=== PATIENT | female | born 1965 | race Caucasian/White ===

== ENCOUNTER 2020-08-26 12:35 | Emergency (ER) | payer MEDICAID ==
[~2020-08-26] VITALS: Ht 157.5 cm; Wt 68.0 kg
[2020-08-26 12:37] VITALS: BP 130/74
--- NOTE | 2020-08-26 12:40 | NUR ---
PATIENT AMBULATED TO BED 12. HANDED ON URINE CUP.
--- NOTE | 2020-08-26 12:54 | NUR ---
54 Y/O F BIB FROM HOME, PATIENT PRESENTS TO ED WITH ABD PAIN, WENT TO URGENT CARE AND WAS TOLD TO COME HERE FOR SYMPTOMS. 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 DENIES N/V/D, VAGINAL DISCHARGE AND BLEEDING, PAINFUL URINATION; SKIN IS PINK/WARM/DRY; AAOX4 WITH EVEN AND STEADY GAIT; LUNGS CLEAR BL; HR EVEN AND REGULAR; PT DENIES ANY FEVER, CP, SOB, OR COUGH AT THIS TIME; PATIENT STATES PAIN OF 0/10 AT THIS TIME; VSS; PATIENT POSITIONED FOR COMFORT; HOB ELEVATED; BEDRAILS UP X2; BED DOWN. ER MD MADE AWARE OF PT STATUS. PT REQUESTED A WORK NOTE FOR LIMITED MOBILITY. PMH: VERTIGO ALLERGY: PT STATES SHE DOES NOT REMEMBER NAME OF MEDICATION MED: NONE
--- NOTE | 2020-08-26 13:05 | NUR ---
LAB AT BEDSIDE
[2020-08-26 13:29] LABS: BASOPHILS % (AUTO) 0.8 % (0.0-2.0); EOSINOPHILS # (AUTO) 0.3 K/uL (0-0.4); EOSINOPHILS % (AUTO) 5.4 % (0.0-4.0); HEMATOCRIT 39.1 % (36-48); HEMOGLOBIN 13.5 g/dL (12.0-16.0); LYMPHOCYTES # (AUTO) 2.1 K/uL (2.5-16.5); LYMPHOCYTES % (AUTO) 38.7 % (20.5-51.1); MEAN CORPUSCULAR HEMOGLOBIN 33 pg (27-31); MEAN CORPUSCULAR HGB CONC 34 g/dL (33-37); MEAN CORPUSCULAR VOLUME 94.3 fL (80-94); MONOCYTES # (AUTO) 0.4 K/uL (0.8-1.0); MONOCYTES % (AUTO) 6.9 % (1.7-9.3); NEUTROPHILS # (AUTO) 2.7 K/uL (1.8-7.7); NEUTROPHILS % (AUTO) 48.2 % (42.2-75.2); PLATELET COUNT (AUTO) 187 K/uL (140-450); RED BLOOD CELL COUNT(AUTO) 4.15 MIL/uL (4.20-5.40); RED CELL DISTRIBUTION WIDTH 13.2 % (11.6-13.7); WHITE BLOOD COUNT (AUTO) 5.5 K/uL (4.8-10.8)
[2020-08-26] MEDS ORDERED: ALUMINUM HYD/MAG/SIMETHICONE 30 ML UDC PO ONE (13:35)
[2020-08-26] MEDS ORDERED: FAMOTIDINE 20 MG TAB PO ONE (13:35)
[2020-08-26 13:50] LABS: ALBUMIN 4.4 g/dL (3.4-5.0); ANION GAP 9.9 (8-16); CARBON DIOXIDE 30.8 mmol/L (21-32); POTASSIUM 3.7 mmol/L (3.5-5.1); TOTAL BILIRUBIN 0.4 mg/dL (0.0-1.0)
[2020-08-26 14:56] VITALS: BP 130/74
--- NOTE | 2020-08-26 14:57 | NUR ---
Patient discharged with v/s stable. Written and verbal after care instructions given and explained. Patient verbalized understanding. Ambulatory with steady gait. All questions addressed prior to discharge. Advised to follow up with PMD.
== END 2020-08-26 14:57 | disposition home or self-care (01) ==
LOC: MED 12:35
DX: K80.20 Calculus of gallbladder without cholecystitis without obstruction (principal); Z98.890 Other specified postprocedural states
CPT/HCPCS: 36415; 76705; 80053; 81002; 83690; 85025; 99284

== ENCOUNTER 2020-09-10 12:57 | Emergency (ER) | payer MEDICAID ==
[~2020-09-10] VITALS: Ht 154.9 cm; Wt 68.0 kg
[2020-09-10 13:06] VITALS: BP 116/67
--- NOTE | 2020-09-10 13:25 | NUR ---
PT COMPLAINS OF NAUSEA, ABDOMINAL DISCOMFORT SINCE LAST VISIT ON July. PT STATES LAST VISIT SHE HAD BEEN DISCHARGED WITH GALLSTONES AND THAT PAIN HAS BEEN LINGERING SINCE WITH SOME HOT FLASHES. PT AOX4, BREATHING EVEN AND UNLABORED, SKIN WARM AND DRY. BED IN LOWEST POSITION, LOCKED, BED RAIL UPX1. PMH - DENIES ALLERGIES - NKA
[2020-09-10] MEDS: KETOROLAC 60 MG/2 ML VIAL IM ONE (13:44)
[2020-09-10] MEDS ORDERED: ONDA4TAB PO (14:08)
[2020-09-10] MEDS ORDERED: IBUP-1842 PO (14:08)
[2020-09-10 14:39] VITALS: BP 116/67
--- NOTE | 2020-09-10 14:40 | NUR ---
Patient discharged with v/s stable. Written and verbal after care instructions about biliary colic given and explained. Patient alert, oriented and verbalized understanding of instructions. Ambulatory with steady gait. All questions addressed prior to discharge. ID band removed. Patient advised to follow up with PMD. Rx of ibuprofen, zofran given. Patient educated on indication of medication including possible reaction and side effects. Opportunity to ask questions provided and answered.
== END 2020-09-10 14:40 | disposition home or self-care (01) ==
LOC: MED 12:57
DX: K80.80 Other cholelithiasis without obstruction (principal); R11.0 Nausea; Z79.899 Other long term (current) drug therapy
CPT/HCPCS: 96372; 99283; J1885